=== PATIENT | female | born 1995 | race African-American/Black ===

== ENCOUNTER 2018-01-13 12:54 | Emergency (ER) | payer MEDICAID, MEDICARE ==
[~2018-01-13] VITALS: Ht 162.6 cm; Wt 120.0 kg
[~2018-01-13 12:54] MED LIST: SEROQUEL
[2018-01-13 12:55] VITALS: BP 123/79
== END 2018-01-13 16:10 | disposition left against medical advice (07) ==
LOC: ER 13:15
DX: Z53.21 Procedure and treatment not carried out due to patient leaving prior to being seen by health care provider (principal); Z88.1 Allergy status to other antibiotic agents; Z88.3 Allergy status to other anti-infective agents; Z88.0 Allergy status to penicillin

== ENCOUNTER 2019-02-14 15:16 | Emergency (ER) | payer MEDICARE, MEDICAID ==
[~2019-02-14] VITALS: Ht 165.1 cm; Wt 100.0 kg
[2019-02-14 15:18] VITALS: BP 145/70
== END 2019-02-14 15:47 | disposition left against medical advice (07) ==
LOC: ER 15:19
DX: Z53.21 Procedure and treatment not carried out due to patient leaving prior to being seen by health care provider (principal); F31.9 Bipolar disorder, unspecified; Z88.1 Allergy status to other antibiotic agents; Z88.3 Allergy status to other anti-infective agents; Z88.0 Allergy status to penicillin; Z88.2 Allergy status to sulfonamides; Z88.8 Allergy status to other drugs, medicaments and biological substances; Z91.018 Allergy to other foods
CPT/HCPCS: 93005

== ENCOUNTER 2019-03-23 10:28 | Emergency (ER) | payer MEDICARE, MEDICAID ==
[~2019-03-23] VITALS: Ht 165.1 cm; Wt 122.0 kg
[2019-03-23 11:43] LABS: BASOPHILS % 0.3 % (0.0-2.0); EOSINOPHILS % 1.8 % (0.0-5.0); HEMATOCRIT. 38.3 % (36.0-48.0); HEMOGLOBIN. 12.7 g/dL (12.0-16.0); LYMPHOCYTES % 22.3 % (20.0-50.0); MEAN CORPUSCULAR HEMOGLOBIN 28.4 pg (28.0-32.0); MEAN PLATELET VOLUME 8.7 fl (7.4-10.4); MONOCYTES % 6.1 % (2.0-8.0); NEUTROPHILS % 69.5 % (40.0-76.0); PLATELET 225 x1000/uL (130-400); RED BLOOD CELL COUNT 4.45 mill/uL (4.2-5.4)
[2019-03-23 11:47] LABS: INR 1.2
[2019-03-23 11:48] LABS: CHLORIDE 107 mEq/L (98-107)
[2019-03-23] MEDS ORDERED: SODIUM CHLORIDE 0.9% 1,000 ML IV ONE (12:00)
[2019-03-23] MEDS ORDERED: KETOROLAC 15MG/ML VIAL IV ONE (12:00)
[2019-03-23] MEDS ORDERED: ACETAMINOPHEN 325MG TABLET PO ONE (12:45)
[2019-03-23 13:41] LABS: CLARITY URINE CLEAR (CLEAR); COLOR URINE YELLOW (YELLOW); KETONES URINE 1+ (NEGATIVE); LEUKOCYTE ESTERASE URINE NEGATIVE (NEGATIVE); NITRITE URINE NEGATIVE (NEGATIVE); OCCULT BLOOD URINE NEGATIVE (NEGATIVE); PROTEIN URINE NEGATIVE (NEGATIVE); SPECIFIC GRAVITY URINE 1.021 (1.005-1.030)
[2019-03-23] MEDS ORDERED: BACITRACIN ZINC OINT UDPKT TOP NR ×2 (14:00)
[2019-03-23] MEDS ORDERED: IBUPROFEN 600MG TABLET PO NR (14:00)
[2019-03-23 14:55] VITALS: BP 142/75
== END 2019-03-23 15:10 | disposition home or self-care (01) ==
LOC: ER 10:28
DX: L03.90 Cellulitis, unspecified (principal); K59.00 Constipation, unspecified; T14.8XXA Other injury of unspecified body region, initial encounter; X58.XXXA Exposure to other specified factors, initial encounter; Y92.9 Unspecified place or not applicable; Y93.9 Activity, unspecified; R03.0 Elevated blood-pressure reading, without diagnosis of hypertension; Z88.0 Allergy status to penicillin; Z88.2 Allergy status to sulfonamides; Z88.8 Allergy status to other drugs, medicaments and biological substances; Z88.3 Allergy status to other anti-infective agents
CPT/HCPCS: 36415; 80053; 81003; 83690; 85025; 85610; 99284; J1885

== ENCOUNTER 2019-03-29 17:57 | Emergency (ER) | payer MEDICARE, MEDICAID ==
[~2019-03-29] VITALS: Ht 165.1 cm; Wt 126.0 kg
[2019-03-29 18:00] VITALS: BP 139/58
== END 2019-03-29 19:12 | disposition left against medical advice (07) ==
LOC: ER 17:57
DX: R53.1 Weakness (principal); Z53.21 Procedure and treatment not carried out due to patient leaving prior to being seen by health care provider

== ENCOUNTER 2019-04-05 15:07 | Emergency (ER) | payer MEDICARE, MEDICAID ==
[~2019-04-05] VITALS: Ht 170.2 cm; Wt 116.0 kg
[2019-04-05] MEDS ORDERED: KETOROLAC 60MG/2ML VIAL IM ONE (17:30)
[2019-04-05 17:58] LABS: CLARITY URINE CLEAR (CLEAR); COLOR URINE YELLOW (YELLOW); KETONES URINE NEGATIVE (NEGATIVE); LEUKOCYTE ESTERASE URINE NEGATIVE (NEGATIVE); NITRITE URINE NEGATIVE (NEGATIVE); OCCULT BLOOD URINE NEGATIVE (NEGATIVE); PH URINE 5.5 (4.5-8.0); PROTEIN URINE NEGATIVE (NEGATIVE); SPECIFIC GRAVITY URINE 1.022 (1.005-1.030)
[2019-04-05 19:16] VITALS: BP 139/84
== END 2019-04-05 19:29 | disposition home or self-care (01) ==
LOC: ER 15:51
DX: M79.18 Myalgia, other site (principal); N94.10 Unspecified dyspareunia; F41.9 Anxiety disorder, unspecified; J45.909 Unspecified asthma, uncomplicated; Z91.018 Allergy to other foods; Z88.1 Allergy status to other antibiotic agents
CPT/HCPCS: 81003; 81025; 96372; 99283; J1885

== ENCOUNTER 2019-04-18 16:26 | Emergency (ER) | payer MEDICARE, MEDICAID ==
[~2019-04-18] VITALS: Ht 170.2 cm; Wt 109.0 kg
[2019-04-18] MEDS ORDERED: SODIUM CHLORIDE 0.9% 1,000 ML IV ONE (18:00)
[2019-04-18 18:33] LABS: BASOPHILS % 0.5 % (0.0-2.0); EOSINOPHILS % 2.5 % (0.0-5.0); HEMATOCRIT. 35.8 % (36.0-48.0); HEMOGLOBIN. 11.9 g/dL (12.0-16.0); LYMPHOCYTES % 35.8 % (20.0-50.0); MEAN CORPUSCULAR HEMOGLOBIN 28.8 pg (28.0-32.0); MEAN CORPUSCULAR VOLUME 86.5 fL (81.0-99.0); MEAN PLATELET VOLUME 8.6 fl (7.4-10.4); MONOCYTES % 6.4 % (2.0-8.0); NEUTROPHILS % 54.8 % (40.0-76.0); PLATELET 268 x1000/uL (130-400); RED BLOOD CELL COUNT 4.14 mill/uL (4.2-5.4); RED CELL DISTRIBUTION WIDTH 13.6 % (11.6-14.6)
[2019-04-18 18:38] LABS: CHLORIDE 105 mEq/L (98-107)
[2019-04-18] MEDS ORDERED: ACETAMINOPHEN 325MG TABLET PO ONE (19:45)
[2019-04-18 20:13] LABS: CREATINE KINASE 69 IU/L (26-192)
[2019-04-18 22:28] VITALS: BP 125/65
== END 2019-04-18 22:29 | disposition home or self-care (01) ==
LOC: ER 16:26
DX: O26.891 Other specified pregnancy related conditions, first trimester (principal); M79.10 Myalgia, unspecified site; Z3A.00 Weeks of gestation of pregnancy not specified; Z88.6 Allergy status to analgesic agent; Z88.3 Allergy status to other anti-infective agents; Z88.0 Allergy status to penicillin; Z88.2 Allergy status to sulfonamides; Z91.018 Allergy to other foods
CPT/HCPCS: 36415; 76801; 76817; 80048; 81025; 82550; 84702; 85025; 99284; J7030

== ENCOUNTER 2019-04-19 16:43 | Emergency (ER) | payer MEDICARE, MEDICAID ==
[~2019-04-19] VITALS: Ht 172.7 cm; Wt 130.0 kg
[2019-04-19 16:44] VITALS: BP 134/64
== END 2019-04-19 19:17 | disposition left against medical advice (07) ==
LOC: ER 16:43
DX: Z53.21 Procedure and treatment not carried out due to patient leaving prior to being seen by health care provider (principal)

== ENCOUNTER 2019-04-30 13:45 | Emergency (ER) | payer MEDICARE, MEDICAID ==
[~2019-04-30] VITALS: Ht 170.2 cm; Wt 75.0 kg
[2019-04-30 14:50] LABS: BASOPHILS % 0.4 % (0.0-2.0); EOSINOPHILS % 2.4 % (0.0-5.0); HEMATOCRIT. 35.3 % (36.0-48.0); HEMOGLOBIN. 11.9 g/dL (12.0-16.0); LYMPHOCYTES % 19.4 % (20.0-50.0); MEAN CORPUSCULAR HEMOGLOBIN 29.1 pg (28.0-32.0); MEAN CORPUSCULAR VOLUME 86.3 fL (81.0-99.0); MEAN PLATELET VOLUME 8.3 fl (7.4-10.4); MONOCYTES % 5.4 % (2.0-8.0); NEUTROPHILS % 72.4 % (40.0-76.0); PLATELET 236 x1000/uL (130-400); RED BLOOD CELL COUNT 4.08 mill/uL (4.2-5.4); RED CELL DISTRIBUTION WIDTH 14.4 % (11.6-14.6)
[2019-04-30 14:57] LABS: CHLORIDE 107 mEq/L (98-107)
[2019-04-30 15:21] LABS: B-HCG QUANTITATIVE 50217 mIU/mL (<3)
[2019-04-30] MEDS ORDERED: ACETAMINOPHEN 325MG TABLET PO NR (16:41)
[2019-04-30 17:06] LABS: CLARITY URINE CLEAR (CLEAR); COLOR URINE YELLOW (YELLOW); KETONES URINE NEGATIVE (NEGATIVE); LEUKOCYTE ESTERASE URINE NEGATIVE (NEGATIVE); NITRITE URINE NEGATIVE (NEGATIVE); OCCULT BLOOD URINE NEGATIVE (NEGATIVE); PROTEIN URINE NEGATIVE (NEGATIVE); SPECIFIC GRAVITY URINE 1.025 (1.005-1.030); UROBILINOGEN URINE 0.2 E.U./dL (0.2-1.0)
[2019-04-30 17:30] VITALS: BP 128/79
== END 2019-04-30 17:33 | disposition home or self-care (01) ==
LOC: ER 13:45
DX: O26.891 Other specified pregnancy related conditions, first trimester (principal); Z3A.01 Less than 8 weeks gestation of pregnancy; Z88.0 Allergy status to penicillin; Z88.1 Allergy status to other antibiotic agents; Z88.8 Allergy status to other drugs, medicaments and biological substances; Z91.018 Allergy to other foods
CPT/HCPCS: 36415; 76801; 81025; 84702; 86850; 86900; 99284

== ENCOUNTER 2019-05-04 16:18 | Emergency (ER) | payer MEDICARE, MEDICAID ==
[~2019-05-04] VITALS: Ht 165.1 cm; Wt 100.0 kg
[2019-05-04 16:40] VITALS: BP 156/86
== END 2019-05-04 19:00 | disposition left against medical advice (07) ==
LOC: ER 16:18
DX: Z53.21 Procedure and treatment not carried out due to patient leaving prior to being seen by health care provider (principal)

== ENCOUNTER 2019-05-17 13:53 | Emergency (ER) | payer MEDICARE, MEDICAID ==
[~2019-05-17] VITALS: Ht 165.1 cm; Wt 128.4 kg
[2019-05-17 15:10] LABS: CLARITY URINE CLEAR (CLEAR); COLOR URINE YELLOW (YELLOW); KETONES URINE NEGATIVE (NEGATIVE); LEUKOCYTE ESTERASE URINE NEGATIVE (NEGATIVE); NITRITE URINE NEGATIVE (NEGATIVE); OCCULT BLOOD URINE 2+ (NEGATIVE); PROTEIN URINE NEGATIVE (NEGATIVE); UROBILINOGEN URINE 0.2 E.U./dL (0.2-1.0)
[2019-05-17 16:48] LABS: BASOPHILS % 0.4 % (0.0-2.0); EOSINOPHILS % 1.2 % (0.0-5.0); HEMATOCRIT. 33.6 % (36.0-48.0); HEMOGLOBIN. 11.3 g/dL (12.0-16.0); LYMPHOCYTES % 31.9 % (20.0-50.0); MEAN CORPUSCULAR HEMOGLOBIN 29.2 pg (28.0-32.0); MEAN CORPUSCULAR VOLUME 86.6 fL (81.0-99.0); MEAN PLATELET VOLUME 8.5 fl (7.4-10.4); MONOCYTES % 6.7 % (2.0-8.0); NEUTROPHILS % 59.8 % (40.0-76.0); PLATELET 237 x1000/uL (130-400); RED BLOOD CELL COUNT 3.88 mill/uL (4.2-5.4); RED CELL DISTRIBUTION WIDTH 13.9 % (11.6-14.6)
[2019-05-17 16:50] LABS: CHLORIDE 107 mEq/L (98-107)
[2019-05-17 17:14] LABS: B-HCG QUANTITATIVE 57232 mIU/mL (<3)
[2019-05-17 17:40] VITALS: BP 131/63
== END 2019-05-17 18:10 | disposition home or self-care (01) ==
LOC: ER 13:53
DX: O26.851 Spotting complicating pregnancy, first trimester (principal); O99.321 Drug use complicating pregnancy, first trimester; F12.10 Cannabis abuse, uncomplicated; Z3A.09 9 weeks gestation of pregnancy; Z87.891 Personal history of nicotine dependence; Z91.018 Allergy to other foods; Z88.1 Allergy status to other antibiotic agents; Z88.0 Allergy status to penicillin; Z88.2 Allergy status to sulfonamides
CPT/HCPCS: 36415; 76801; 81025; 84702; 86850; 86900; 99284

== ENCOUNTER 2019-05-25 17:22 | Emergency (ER) | payer MEDICARE, MEDICAID ==
[~2019-05-25] VITALS: Ht 165.1 cm; Wt 137.0 kg
[2019-05-25] MEDS ORDERED: ACETAMINOPHEN 325MG TABLET PO PRN (18:30)
[2019-05-25 18:58] LABS: BASOPHILS % 0.5 % (0.0-2.0); CHLORIDE 105 mEq/L (98-107); EOSINOPHILS % 1.9 % (0.0-5.0); HEMATOCRIT. 33.9 % (36.0-48.0); HEMOGLOBIN. 11.2 g/dL (12.0-16.0); LYMPHOCYTES % 27.6 % (20.0-50.0); MEAN CORPUSCULAR VOLUME 87.5 fL (81.0-99.0); MEAN PLATELET VOLUME 8.4 fl (7.4-10.4); MONOCYTES % 7.8 % (2.0-8.0); NEUTROPHILS % 62.2 % (40.0-76.0); PLATELET 224 x1000/uL (130-400); RED BLOOD CELL COUNT 3.87 mill/uL (4.2-5.4); RED CELL DISTRIBUTION WIDTH 13.8 % (11.6-14.6)
[2019-05-25 19:17] LABS: CLARITY URINE CLOUDY (CLEAR); COLOR URINE YELLOW (YELLOW); KETONES URINE NEGATIVE (NEGATIVE); LEUKOCYTE ESTERASE URINE 2+ (NEGATIVE); NITRITE URINE NEGATIVE (NEGATIVE); OCCULT BLOOD URINE NEGATIVE (NEGATIVE); PH URINE 5.5 (4.5-8.0); PROTEIN URINE NEGATIVE (NEGATIVE); SPECIFIC GRAVITY URINE 1.021 (1.005-1.030); UROBILINOGEN URINE 0.2 E.U./dL (0.2-1.0)
[2019-05-25 19:23] LABS: B-HCG QUANTITATIVE 32459 mIU/mL (<3)
[2019-05-25 21:10] VITALS: BP 135/65
== END 2019-05-25 21:14 | disposition home or self-care (01) ==
LOC: ER 17:22
DX: O26.891 Other specified pregnancy related conditions, first trimester (principal); R10.2 Pelvic and perineal pain; Z3A.11 11 weeks gestation of pregnancy; Z88.3 Allergy status to other anti-infective agents; Z88.0 Allergy status to penicillin; Z88.2 Allergy status to sulfonamides
CPT/HCPCS: 36415; 76801; 81025; 84702; 99284

== ENCOUNTER 2019-12-16 13:45 | Emergency (ER) | payer MEDICARE, MEDICAID ==
[~2019-12-16] VITALS: Ht 167.6 cm; Wt 127.0 kg
[2019-12-16] MEDS ORDERED: LIDOCAINE HCL 1% 20ML VIAL (Pyxis) INJ INFIL ONE (22:15)
[2019-12-16 23:19] VITALS: BP 150/80
== END 2019-12-16 23:17 | disposition home or self-care (01) ==
LOC: ER 14:04
DX: T81.31XA Disruption of external operation (surgical) wound, not elsewhere classified, initial encounter (principal); I10 Essential (primary) hypertension; F12.10 Cannabis abuse, uncomplicated; Z88.3 Allergy status to other anti-infective agents; Z88.0 Allergy status to penicillin; Z88.2 Allergy status to sulfonamides; Z91.018 Allergy to other foods; Y83.8 Other surgical procedures as the cause of abnormal reaction of the patient, or of later complication, without mention of misadventure at the time of the procedure; Y92.018 Other place in single-family (private) house as the place of occurrence of the external cause
CPT/HCPCS: 12001; 99283; J3490

== ENCOUNTER 2020-09-06 19:24 | Emergency (ER) | payer MEDICAID, MEDICARE ==
[~2020-09-06] VITALS: Ht 162.6 cm; Wt 118.0 kg
[2020-09-06] MEDS ORDERED: TETRACAINE 0.5% OPHTH DROPS 4ML BOTHEYE ONE (20:00)
[2020-09-06] MEDS ORDERED: BALANCED SALT IRRIG SOLN 15ML IR ONE (20:00)
[2020-09-06 20:57] VITALS: BP 128/79
== END 2020-09-06 21:08 | disposition home or self-care (01) ==
LOC: ER 19:24
DX: H57.9 Unspecified disorder of eye and adnexa (principal); F12.10 Cannabis abuse, uncomplicated; I10 Essential (primary) hypertension; Z98.890 Other specified postprocedural states; Z91.018 Allergy to other foods; Z88.1 Allergy status to other antibiotic agents; Z88.2 Allergy status to sulfonamides; Z79.899 Other long term (current) drug therapy
CPT/HCPCS: 99283

== ENCOUNTER 2024-08-23 13:41 | Emergency (ER) | payer OTHER ==
[~2024-08-23] VITALS: Ht 162.6 cm; Wt 180.0 kg
[2024-08-23 13:45] VITALS: TEMP 98.1; O2SAT 98
[2024-08-23] MEDS: KETOROLAC 30MG/ML VIAL IV STA (14:10)
[2024-08-23] MEDS: ONDANSETRON HCL 4MG/2ML INJ IV STA (15:05)
[2024-08-23] MEDS: SODIUM CHLORIDE 0.9% 1,000 ML IV ONE (15:05)
[2024-08-23] MEDS: ACETAMINOPHEN 1000MG/100ML 100 ML IV ONE (15:05)
[2024-08-23] MEDS: DIPHENHYDRAMINE 25MG CAPSULE PO ONE (15:15)
[2024-08-23 15:24] LABS: BASOPHILS % 0.5 % (0.0-2.0); DIFFERENTIAL COMMENT 0; EOSINOPHILS % 3.5 % (0.0-5.0); HEMATOCRIT. 31.3 % (36.0-48.0); HEMOGLOBIN. 9.6 g/dL (12.0-16.0); LYMPHOCYTES % 33.1 % (20.0-50.0); MEAN CORPUSCULAR HEMOGLOBIN 23.9 pg (28.0-32.0); MEAN CORPUSCULAR HGB CONC 30.8 g/dL (31.0-37.0); MEAN CORPUSCULAR VOLUME 77.7 fL (81.0-99.0); MEAN PLATELET VOLUME 8.4 fl (7.4-10.4); MONOCYTES % 6.1 % (2.0-8.0); NEUTROPHILS % 56.8 % (40.0-76.0); PLATELET 277 x1000/uL (130-400); RED BLOOD CELL COUNT 4.03 mill/uL (4.2-5.4); RED CELL DISTRIBUTION WIDTH 18.3 % (11.6-14.6); WHITE BLOOD COUNT 8.3 x1000/uL (4.5-11.0)
[2024-08-23 15:29] LABS: CHLORIDE 110 mEq/L (98-107); SODIUM 140 mEq/L (136-145)
[2024-08-23 15:31] LABS: CALCIUM 8.7 mg/dL (8.7-10.4); CARBON DIOXIDE 23 mEq/L (21-32)
[2024-08-23 15:35] LABS: HCG SCREEN NEGATIVE
[2024-08-23 15:36] LABS: CREATININE 0.8 mg/dL (0.6-1.0); GLUCOSE 104 mg/dL (70-105); UREA NITROGEN BLOOD 8 mg/dL (9-23)
[2024-08-23 15:37] LABS: ALANINE AMINOTRANSFERASE 9 IU/L (10-49); ASPARTATE AMINOTRANSFERASE 32 IU/L (<34)
[2024-08-23 15:38] LABS: ALBUMIN 4.2 g/dL (3.2-4.8); BILIRUBIN DIRECT 0.2 mg/dL (<=3.0); BILIRUBIN TOTAL 0.6 mg/dL (0.1-1.0); ETHANOL BLOOD < 10 mg/dL (<10); PROTEIN TOTAL 6.7 g/dL (6.0-8.3)
[2024-08-23 17:45] VITALS: BP 122/89; PULSE 97; RESP 14; O2SAT 99
== END 2024-08-23 17:59 | disposition home or self-care (01) ==
LOC: ER 13:44
DX: R19.7 Diarrhea, unspecified (principal); R10.84 Generalized abdominal pain; D64.9 Anemia, unspecified; I10 Essential (primary) hypertension; Z88.0 Allergy status to penicillin; Z88.1 Allergy status to other antibiotic agents; Z88.2 Allergy status to sulfonamides; Z91.018 Allergy to other foods; Z98.890 Other specified postprocedural states
CPT/HCPCS: 80076; 80048; 80320; 84703; 83690; 85025; 36415; 74176; 96361; 96374; 96375; 99285; Q0163; J1885; J2405; J7030; Z7610 ×3; G0480; J0131

== ENCOUNTER 2025-01-29 13:06 | Emergency (ER) | payer OTHER ==
[~2025-01-29] VITALS: Ht 167.6 cm; Wt 159.0 kg
[2025-01-29 13:08] VITALS: BP 159/81; PULSE 93; RESP 18; TEMP 36.8; O2SAT 99
[2025-01-29] MEDS: FAMOTIDINE 20MG/2ML VIAL IV ONE (14:43)
[2025-01-29] MEDS: METHYLPREDNISOLONE SOD SUCC 125MG/2ML (ACT-O-VIAL) IV ONE (14:43)
[2025-01-29] MEDS: ONDANSETRON HCL 4MG/2ML INJ IV ONE (14:43)
[2025-01-29] MEDS: DIPHENHYDRAMINE 50MG/ML VIAL IV ONE (14:43)
[2025-01-29 14:49] VITALS: TEMP 98.7
[2025-01-29] MEDS: ACETAMINOPHEN 325MG TABLET PO ONE (14:49)
[2025-01-29] MEDS: HYDROCODONE/ACETAMINOPHEN 7.5/325MG TABLET PO ONE (15:24)
[2025-01-29] MEDS: KETOROLAC 15MG/ML VIAL IV ONE (15:26)
== END 2025-01-29 15:28 | disposition home or self-care (01) ==
LOC: ER 13:06
DX: T78.40XA Allergy, unspecified, initial encounter (principal); I10 Essential (primary) hypertension; Z88.0 Allergy status to penicillin; Z88.1 Allergy status to other antibiotic agents; Z88.2 Allergy status to sulfonamides; Z98.890 Other specified postprocedural states; X58.XXXA Exposure to other specified factors, initial encounter; Y93.89 Activity, other specified; Y92.89 Other specified places as the place of occurrence of the external cause; Y99.8 Other external cause status
CPT/HCPCS: 96374; 96375; 99284; J1200; J3490; J2919; J2405; Z7610 ×4; J1885

== ENCOUNTER 2025-01-30 22:38 | Emergency (ER) | payer OTHER ==
[~2025-01-30] VITALS: Ht 167.6 cm; Wt 158.8 kg
[2025-01-30 22:42] VITALS: BP 148/73; PULSE 72; RESP 14; TEMP 37; O2SAT 100
[2025-01-30] MEDS: ACETAMINOPHEN 1000MG/100ML 100 ML IV ONE (23:09)
[2025-01-31] MEDS ORDERED: SODIUM CHLORIDE 0.9% 500 ML IV ONE
[2025-01-31] MEDS ORDERED: DIPHENHYDRAMINE 25MG CAPSULE PO ONE
[2025-01-31] MEDS ORDERED: ONDANSETRON HCL 4MG/2ML INJ IV ONE
[2025-01-31] MEDS ORDERED: ACETAMINOPHEN 325MG TABLET PO ONE (00:30)
== END 2025-01-31 00:35 | disposition left against medical advice (07) ==
LOC: ER 22:38
DX: G89.29 Other chronic pain (principal); R10.33 Periumbilical pain; I10 Essential (primary) hypertension; Z88.0 Allergy status to penicillin; Z88.1 Allergy status to other antibiotic agents; Z88.2 Allergy status to sulfonamides; Z98.890 Other specified postprocedural states
CPT/HCPCS: 99283; J7040; J0131

== ENCOUNTER 2025-02-20 14:04 | Emergency (ER) | payer MEDICAID, OTHER ==
[~2025-02-20] VITALS: Ht 167.6 cm; Wt 120.0 kg
[2025-02-20 14:11] VITALS: O2SAT 99
[2025-02-20] MEDS ORDERED: DIPHENHYDRAMINE 50MG CAPSULE PO ONE (14:30)
[2025-02-20] MEDS: ACETAMINOPHEN 325MG TABLET PO ONE (14:30)
[2025-02-20] MEDS: MAGNESIUM/ALUMINUM HYDROXIDE/SIMETHICONE 30ML UDC PO ONE (14:30)
[2025-02-20] MEDS: PREDNISONE 20MG TABLET PO ONE (14:30)
[2025-02-20] MEDS: FAMOTIDINE 20MG TABLET PO SCH (14:30)
[2025-02-20 14:46] LABS: CHLORIDE 105 mEq/L (98-107); POTASSIUM 4.1 mEq/L (3.5-5.1); SODIUM 139 mEq/L (136-145)
[2025-02-20 14:47] LABS: CARBON DIOXIDE 22 mEq/L (21-32)
[2025-02-20 14:48] LABS: CALCIUM 9.2 mg/dL (8.7-10.4)
[2025-02-20 14:49] LABS: INR 1.1; PROTHROMBIN TIME 11.6 sec (9.6-11.0)
[2025-02-20 14:50] LABS: BASOPHILS % 0.3 % (0.0-2.0); DIFFERENTIAL COMMENT 0; EOSINOPHILS % 3.1 % (0.0-5.0); HEMATOCRIT. 32.7 % (36.0-48.0); HEMOGLOBIN. 9.8 g/dL (12.0-16.0); LYMPHOCYTES % 24.5 % (20.0-50.0); MEAN CORPUSCULAR HEMOGLOBIN 22.3 pg (28.0-32.0); MEAN CORPUSCULAR VOLUME 74.3 fL (81.0-99.0); MEAN PLATELET VOLUME 8.5 fl (7.4-10.4); MONOCYTES % 4.6 % (2.0-8.0); NEUTROPHILS % 67.5 % (40.0-76.0); PLATELET 333 x1000/uL (130-400); RED BLOOD CELL COUNT 4.41 mill/uL (4.2-5.4); RED CELL DISTRIBUTION WIDTH 18.5 % (11.6-14.6); WHITE BLOOD COUNT 13.9 x1000/uL (4.5-11.0)
[2025-02-20 14:53] LABS: GLUCOSE 169 mg/dL (70-105); UREA NITROGEN BLOOD 10 mg/dL (9-23)
[2025-02-20 14:54] LABS: ALANINE AMINOTRANSFERASE < 7 IU/L (10-49); ALBUMIN 4.1 g/dL (3.2-4.8)
[2025-02-20 14:55] LABS: BILIRUBIN DIRECT 0.2 mg/dL (<=3.0); BILIRUBIN TOTAL 0.5 mg/dL (0.1-1.0); PROTEIN TOTAL 6.8 g/dL (6.0-8.3)
[2025-02-20 14:58] LABS: HCG SCREEN NEGATIVE
[2025-02-20 15:01] LABS: ASPARTATE AMINOTRANSFERASE < 8 IU/L (<34)
[2025-02-20] MEDS: DIPHENHYDRAMINE 25MG CAPSULE PO NR (15:49)
[2025-02-20 16:50] VITALS: BP 138/82; PULSE 81; RESP 18; TEMP 37; O2SAT 99
== END 2025-02-20 17:48 | disposition home or self-care (01) ==
LOC: ER 14:11
DX: R10.9 Unspecified abdominal pain (principal); I10 Essential (primary) hypertension; K80.20 Calculus of gallbladder without cholecystitis without obstruction; Z79.52 Long term (current) use of systemic steroids; Z88.0 Allergy status to penicillin; Z88.1 Allergy status to other antibiotic agents; Z88.2 Allergy status to sulfonamides; Z98.890 Other specified postprocedural states
CPT/HCPCS: 99285; 74176; 76705; 80076; 80048; 84703; 83690; 85025; 85610; 36415; 73560; Q0163; J7512

== ENCOUNTER 2025-03-27 13:45 | Emergency (ER) | payer MEDICAID, OTHER ==
[~2025-03-27] VITALS: Ht 162.6 cm; Wt 160.0 kg
[2025-03-27 13:47] VITALS: O2SAT 100
[2025-03-27] MEDS ORDERED: DICYCLOMINE 10 MG/5 ML ORAL SYR PO STA (13:57)
[2025-03-27] MEDS: MAGNESIUM/ALUMINUM HYDROXIDE/SIMETHICONE 30ML UDC PO STA ×2 (13:57→14:59)
[2025-03-27] MEDS: KETOROLAC 30MG/ML VIAL IV STA (14:58)
[2025-03-27] MEDS: SODIUM CHLORIDE 0.9% 1,000 ML IV ONE (14:59)
[2025-03-27] MEDS: MORPHINE SULFATE 4 MG/ML INJ (FOR IV/IM USE) IV STA (14:59)
[2025-03-27] MEDS: ONDANSETRON HCL 4MG/2ML INJ IV STA (14:59)
[2025-03-27 15:01] LABS: BASOPHILS % 0.6 % (0.0-2.0); DIFFERENTIAL COMMENT 0; EOSINOPHILS % 2.9 % (0.0-5.0); HEMATOCRIT. 33.5 % (36.0-48.0); HEMOGLOBIN. 10.8 g/dL (12.0-16.0); LYMPHOCYTES % 21.2 % (20.0-50.0); MEAN CORPUSCULAR HEMOGLOBIN 23.9 pg (28.0-32.0); MEAN CORPUSCULAR HGB CONC 32.2 g/dL (31.0-37.0); MEAN CORPUSCULAR VOLUME 74.1 fL (81.0-99.0); MEAN PLATELET VOLUME 8.4 fl (7.4-10.4); MONOCYTES % 5.1 % (2.0-8.0); NEUTROPHILS % 70.2 % (40.0-76.0); PLATELET 329 x1000/uL (130-400); RED BLOOD CELL COUNT 4.52 mill/uL (4.2-5.4); RED CELL DISTRIBUTION WIDTH 19.5 % (11.6-14.6); WHITE BLOOD COUNT 10.6 x1000/uL (4.5-11.0)
[2025-03-27 15:09] LABS: CHLORIDE 107 mEq/L (98-107); POTASSIUM 4.1 mEq/L (3.5-5.1); SODIUM 137 mEq/L (136-145)
[2025-03-27 15:10] LABS: CALCIUM 8.7 mg/dL (8.7-10.4); CARBON DIOXIDE 23 mEq/L (21-32)
[2025-03-27 15:13] LABS: HCG SCREEN NEGATIVE
[2025-03-27 15:15] LABS: GLUCOSE 289 mg/dL (70-105); UREA NITROGEN BLOOD 9 mg/dL (9-23)
[2025-03-27 15:17] LABS: ALANINE AMINOTRANSFERASE 8 IU/L (10-49); ALBUMIN 4.2 g/dL (3.2-4.8); ASPARTATE AMINOTRANSFERASE 13 IU/L (<34); BILIRUBIN DIRECT 0.2 mg/dL (<=3.0); BILIRUBIN TOTAL 0.6 mg/dL (0.1-1.0); PROTEIN TOTAL 6.5 g/dL (6.0-8.3)
[2025-03-27] MEDS: DICYCLOMINE HCL 10MG CAPSULE PO NR (15:38)
[2025-03-27] MEDS ORDERED: BISM262T15 MT (16:09)
[2025-03-27 16:16] VITALS: BP 139/69; PULSE 73; RESP 16; TEMP 36.8; O2SAT 100
== END 2025-03-27 16:19 | disposition home or self-care (01) ==
LOC: ER 14:02
DX: R10.33 Periumbilical pain (principal); E11.9 Type 2 diabetes mellitus without complications; I10 Essential (primary) hypertension; Z88.0 Allergy status to penicillin; Z88.1 Allergy status to other antibiotic agents; Z88.2 Allergy status to sulfonamides
CPT/HCPCS: 80076; 80048; 84703; 83690; 85025; 36415; 96361; 96374; 96375; 99285; J1885; J2405; J2270; J7030; Z7610 ×2; A4606

== ENCOUNTER 2025-06-06 07:11 | Emergency (ER) | payer MEDICAID ==
[~2025-06-06] VITALS: Ht 165.1 cm; Wt 109.0 kg
[~2025-06-06 07:11] MED LIST changes: +BISM262T15 MT
[2025-06-06 07:13] VITALS: O2SAT 99
[2025-06-06 09:23] LABS: BASOPHILS % 0.5 % (0.0-2.0); EOSINOPHILS % 3.7 % (0.0-5.0); HEMATOCRIT. 31.9 % (36.0-48.0); HEMOGLOBIN. 10.1 g/dL (12.0-16.0); LYMPHOCYTES % 21.6 % (20.0-50.0); MEAN PLATELET VOLUME 8.8 fl (7.4-10.4); MONOCYTES % 4.4 % (2.0-8.0); NEUTROPHILS % 69.8 % (40.0-76.0); PLATELET 344 x1000/uL (130-400); RED BLOOD CELL COUNT 4.21 mill/uL (4.2-5.4); RED CELL DISTRIBUTION WIDTH 16.2 % (11.6-14.6)
[2025-06-06 09:41] LABS: CREATININE 1.0 mg/dL (0.6-1.0); UREA NITROGEN BLOOD 9 mg/dL (9-23)
[2025-06-06 09:42] LABS: ETHANOL BLOOD < 10 mg/dL (<10)
[2025-06-06 09:43] LABS: ASPARTATE AMINOTRANSFERASE 9 IU/L (<34); BILIRUBIN DIRECT 0.1 mg/dL (<=3.0); BILIRUBIN TOTAL 0.4 mg/dL (0.1-1.0); PROTEIN TOTAL 6.4 g/dL (6.0-8.3)
[2025-06-06 09:50] LABS: HCG SCREEN NEGATIVE
[2025-06-06] MEDS: DIPHENHYDRAMINE 50MG/ML VIAL IV ONE ×2 (09:55→12:00)
[2025-06-06] MEDS: MORPHINE SULFATE 4 MG/ML INJ (FOR IV/IM USE) IV ONE (09:55)
[2025-06-06] MEDS: PANTOPRAZOLE SODIUM 40 MG/VIAL IV ONE ×2 (09:56→10:00)
[2025-06-06] MEDS: ONDANSETRON HCL 4MG/2ML INJ IV ONE (09:56)
[2025-06-06] MEDS: SODIUM CHLORIDE 0.9% 1,000 ML IV ONE (09:56)
[2025-06-06] MEDS: MORPHINE SULFATE 2 MG/ML INJ (NOT FOR IM USE) IV ONE ×2 (12:00→13:31)
[2025-06-06 12:37] LABS: CLARITY URINE CLEAR (CLEAR); COLOR URINE YELLOW (YELLOW); GLUCOSE URINE 1+ (NEGATIVE); KETONES URINE NEGATIVE (NEGATIVE); LEUKOCYTE ESTERASE URINE NEGATIVE (NEGATIVE); NITRITE URINE NEGATIVE (NEGATIVE); OCCULT BLOOD URINE NEGATIVE (NEGATIVE); PH URINE 6.5 (4.5-8.0); PROTEIN URINE NEGATIVE (NEGATIVE); SPECIFIC GRAVITY URINE 1.019 (1.005-1.030); UROBILINOGEN URINE 1.0 E.U./dL (0.2-1.0)
[2025-06-06] MEDS ORDERED: FAMO-135 MT (12:51)
[2025-06-06] MEDS ORDERED: FERR1TAB91 MT (12:51)
[2025-06-06 13:07] LABS: SQUAMOUS EPITHELIAL CELL URINE 1+ /lpf (RARE/1+)
[2025-06-06 13:08] LABS: MUCUS URINE TRACE /lpf (< = 2+); RBC URINE 0-2 /hpf (0-2); WBC URINE 0-2 /hpf (0-2)
[2025-06-06 13:10] LABS: BACTERIA URINE TRACE
[2025-06-06 13:30] VITALS: TEMP 36.8; O2SAT 100
[2025-06-06 13:31] VITALS: BP 155/80; PULSE 98; RESP 16
[2025-06-06 13:34] LABS: *AMPHETAMINES SCREEN URINE NEGATIVE (NEGATIVE); *BENZODIAZEPINES SCREEN URINE NEGATIVE (NEGATIVE)
[2025-06-06 13:35] LABS: *BARBITURATES SCREEN URINE NEGATIVE (NEGATIVE); *COCAINE SCREEN URINE NEGATIVE (NEGATIVE); CANNABINOID URINE SCREEN NEGATIVE (NEGATIVE); ECSTASY MDMA SCREEN URINE NEGATIVE (NEGATIVE); METHADONE URINE SCREEN NEGATIVE (NEGATIVE); OPIATES URINE SCREEN PRESUMPTIVE POSITIVE (NEGATIVE); PHENCYCLIDINE URINE SCREEN NEGATIVE (NEGATIVE)
== END 2025-06-06 13:41 | disposition home or self-care (01) ==
LOC: ER 07:21
DX: K80.70 Calculus of gallbladder and bile duct without cholecystitis without obstruction (principal); D64.9 Anemia, unspecified; E11.65 Type 2 diabetes mellitus with hyperglycemia; I10 Essential (primary) hypertension; Z79.4 Long term (current) use of insulin; Z88.1 Allergy status to other antibiotic agents; Z88.2 Allergy status to sulfonamides; Z88.5 Allergy status to narcotic agent; Z79.899 Other long term (current) drug therapy
CPT/HCPCS: 80076; 80305; 80048; 81003; 81025; 80320; 84703; 83690; 85025; 36415; 73562; 74176; 76705; 96361; 96374; 96375; 96376; 99285; J1200; J2405; J2470; J2270 ×2; J7030; Z7610 ×3; G0480

== ENCOUNTER 2025-06-10 14:13 | Emergency (ER) | payer MEDICAID ==
[~2025-06-10] VITALS: Ht 162.6 cm; Wt 160.0 kg
[~2025-06-10 14:13] MED LIST changes: +FAMO-135 MT; +FERR1TAB91 MT
[2025-06-10 14:17] VITALS: BP 191/98; PULSE 104; RESP 16; TEMP 37.3; O2SAT 98
[2025-06-10] MEDS ORDERED: ACETAMINOPHEN 160MG/5ML UDC PO ONE (14:45)
[2025-06-10] MEDS ORDERED: DIPHENHYDRAMINE 12.5MG/5ML UDC PO ONE (14:45)
[2025-06-10] MEDS: DIPHENHYDRAMINE 12.5MG/5ML UDC PO ONE (15:22)
== END 2025-06-10 15:45 | disposition home or self-care (01) ==
LOC: ER 14:13
DX: T78.40XA Allergy, unspecified, initial encounter (principal); R10.9 Unspecified abdominal pain; I10 Essential (primary) hypertension; E11.9 Type 2 diabetes mellitus without complications; Z88.5 Allergy status to narcotic agent; Z88.2 Allergy status to sulfonamides; Z88.1 Allergy status to other antibiotic agents; Z88.0 Allergy status to penicillin; Z79.899 Other long term (current) drug therapy; Z98.890 Other specified postprocedural states; X58.XXXA Exposure to other specified factors, initial encounter
CPT/HCPCS: 99283; Q0163

== ENCOUNTER 2025-06-11 03:53 | Emergency (ER) | payer MEDICAID ==
[~2025-06-11] VITALS: Ht 162.6 cm; Wt 147.0 kg
[2025-06-11 04:01] VITALS: BP 140/75; PULSE 83; RESP 16; TEMP 36.8; O2SAT 98
[2025-06-11 04:49] LABS: BASOPHILS % 0.5 % (0.0-2.0); EOSINOPHILS % 3.8 % (0.0-5.0); HEMATOCRIT. 32.0 % (36.0-48.0); HEMOGLOBIN. 10.0 g/dL (12.0-16.0); LYMPHOCYTES % 23.3 % (20.0-50.0); MEAN PLATELET VOLUME 8.5 fl (7.4-10.4); MONOCYTES % 4.8 % (2.0-8.0); NEUTROPHILS % 67.6 % (40.0-76.0); PLATELET 357 x1000/uL (130-400); RED BLOOD CELL COUNT 4.27 mill/uL (4.2-5.4); RED CELL DISTRIBUTION WIDTH 16.5 % (11.6-14.6)
[2025-06-11 05:00] LABS: HCG SCREEN NEGATIVE
[2025-06-11 05:05] LABS: CREATININE 0.9 mg/dL (0.6-1.0)
[2025-06-11 05:06] LABS: UREA NITROGEN BLOOD 10 mg/dL (9-23)
[2025-06-11 05:08] LABS: BILIRUBIN DIRECT 0.2 mg/dL (<=3.0); BILIRUBIN TOTAL 0.7 mg/dL (0.1-1.0); PROTEIN TOTAL 6.6 g/dL (6.0-8.3)
[2025-06-11 05:20] LABS: ASPARTATE AMINOTRANSFERASE < 8 IU/L (<34)
[2025-06-11] MEDS ORDERED: ONDANSETRON 4MG ODT PO ONE (07:00)
== END 2025-06-11 07:50 | disposition home or self-care (01) ==
LOC: ER 03:53
DX: R10.84 Generalized abdominal pain (principal); E11.9 Type 2 diabetes mellitus without complications; I10 Essential (primary) hypertension; Z88.0 Allergy status to penicillin; Z88.1 Allergy status to other antibiotic agents; Z88.2 Allergy status to sulfonamides; Z88.5 Allergy status to narcotic agent; Z79.899 Other long term (current) drug therapy; Z98.890 Other specified postprocedural states
CPT/HCPCS: 36415; 74176; 80048; 80076; 84703; 85025; 99284

== ENCOUNTER 2025-07-08 19:58 | Emergency (ER) | payer MEDICAID ==
[2025-07-08 20:15] VITALS: PULSE 99; RESP 20; O2SAT 100
[2025-07-10] MEDS ORDERED: INSU100I28 SQ (17:47)
== END 2025-07-08 21:15 | disposition left against medical advice (07) ==
LOC: ER 20:00
DX: R10.13 Epigastric pain (principal); Z53.21 Procedure and treatment not carried out due to patient leaving prior to being seen by health care provider

== ENCOUNTER 2025-07-16 22:04 | Emergency (ER) | payer MEDICAID ==
[~2025-07-16] VITALS: Ht 162.6 cm; Wt 186.0 kg
[~2025-07-16 22:04] MED LIST changes: +INSU100I28 SQ; -SEROQUEL
[2025-07-16 22:13] VITALS: O2SAT 100
[2025-07-16] MEDS: SODIUM CHLORIDE 0.9% 1,000 ML IV ONE (22:45)
[2025-07-16 23:41] LABS: BASOPHILS % 0.4 % (0.0-2.0); EOSINOPHILS % 3.1 % (0.0-5.0); HEMATOCRIT. 36.0 % (36.0-48.0); HEMOGLOBIN. 11.2 g/dL (12.0-16.0); LYMPHOCYTES % 29.2 % (20.0-50.0); MEAN PLATELET VOLUME 9.0 fl (7.4-10.4); MONOCYTES % 5.3 % (2.0-8.0); NEUTROPHILS % 62.0 % (40.0-76.0); PLATELET 330 x1000/uL (130-400); RED BLOOD CELL COUNT 4.96 mill/uL (4.2-5.4); RED CELL DISTRIBUTION WIDTH 16.1 % (11.6-14.6)
[2025-07-16 23:47] LABS: INR 1.0
[2025-07-16 23:49] LABS: CREATININE 1.2 mg/dL (0.6-1.0)
[2025-07-16 23:50] LABS: UREA NITROGEN BLOOD 11 mg/dL (9-23)
[2025-07-16 23:51] LABS: ASPARTATE AMINOTRANSFERASE 10 IU/L (<34)
[2025-07-16 23:52] LABS: BILIRUBIN DIRECT 0.1 mg/dL (<=3.0); BILIRUBIN TOTAL 0.5 mg/dL (0.1-1.0); PHOSPHORUS 2.8 mg/dL (2.5-4.9); PROTEIN TOTAL 7.4 g/dL (6.0-8.3)
[2025-07-17 00:15] LABS: HCG SCREEN NEGATIVE
[2025-07-17 00:17] VITALS: TEMP 37.1
[2025-07-17] MEDS: MORPHINE SULFATE 4 MG/ML INJ (FOR IV/IM USE) IV ONE (00:18)
[2025-07-17] MEDS: DIPHENHYDRAMINE 50MG/ML VIAL IV NR (01:07)
[2025-07-17] MEDS: INSULIN REGULAR (HUMULIN R) 1000UNITS/10ML VIAL SUBCUT NR (01:08)
[2025-07-17] MEDS: DIPHENHYDRAMINE 25MG CAPSULE PO ONE (02:20)
[2025-07-17] MEDS ORDERED: MORPHINE SULFATE 2 MG/ML INJ (NOT FOR IM USE) IV ONE (03:00)
[2025-07-17 03:05] VITALS: O2SAT 100
[2025-07-17 03:11] VITALS: BP 160/82; PULSE 99; RESP 20
[2025-07-17] MEDS: MORPHINE SULFATE 4 MG/ML INJ (FOR IV/IM USE) IM ONE (03:11)
== END 2025-07-17 03:36 | disposition home or self-care (01) ==
LOC: ER 22:04
DX: E11.65 Type 2 diabetes mellitus with hyperglycemia (principal); I10 Essential (primary) hypertension; E66.9 Obesity, unspecified; Z79.899 Other long term (current) drug therapy; Z98.890 Other specified postprocedural states; Z88.0 Allergy status to penicillin; Z88.1 Allergy status to other antibiotic agents; Z88.2 Allergy status to sulfonamides; Z88.5 Allergy status to narcotic agent
CPT/HCPCS: 80076; 80048; 84703; 83735; 84100; 85025; 85610; 85730; 86850; 86900; 86901; 36415; 96361; 99285; 82962; 76856; 96372; 96374; 96375; J7030; Q0163; J1200; J1815; J2270; Z7610

== ENCOUNTER 2025-09-12 14:01 | Emergency (ER) | payer MEDICAID, OTHER ==
[~2025-09-12] VITALS: Ht 172.7 cm; Wt 127.0 kg
[2025-09-12 14:06] VITALS: O2SAT 98
[2025-09-12] MEDS: DIPHENHYDRAMINE 50MG CAPSULE PO ONE (15:48)
[2025-09-12] MEDS: SODIUM CHLORIDE 0.9% 1,000 ML IV ONE (15:48)
[2025-09-12 16:15] LABS: BASOPHILS % 0.7 % (0.0-2.0); EOSINOPHILS % 1.3 % (0.0-5.0); HEMATOCRIT. 35.7 % (36.0-48.0); HEMOGLOBIN. 10.8 g/dL (12.0-16.0); LYMPHOCYTES % 22.5 % (20.0-50.0); MEAN PLATELET VOLUME 8.9 fl (7.4-10.4); MONOCYTES % 4.6 % (2.0-8.0); NEUTROPHILS % 70.9 % (40.0-76.0); PLATELET 340 x1000/uL (130-400); RED BLOOD CELL COUNT 5.17 mill/uL (4.2-5.4); RED CELL DISTRIBUTION WIDTH 17.1 % (11.6-14.6)
[2025-09-12 16:16] LABS: ADD RBC MORPHOLOGY YES
[2025-09-12 16:33] VITALS: BP 129/93; PULSE 96; RESP 17; TEMP 36.8; O2SAT 99
[2025-09-12 16:33] LABS: HCG SCREEN NEGATIVE
[2025-09-12 16:34] LABS: CREATININE 0.9 mg/dL (0.6-1.0); UREA NITROGEN BLOOD 6 mg/dL (9-23)
[2025-09-12 16:36] LABS: ASPARTATE AMINOTRANSFERASE 15 IU/L (<34); BILIRUBIN DIRECT 0.2 mg/dL (<=3.0)
[2025-09-12 16:37] LABS: BILIRUBIN TOTAL 0.7 mg/dL (0.1-1.0); PROTEIN TOTAL 7.1 g/dL (6.0-8.3)
[2025-09-12 18:19] LABS: PLATELET ESTIMATE NORMAL
== END 2025-09-12 17:04 | disposition left against medical advice (07) ==
LOC: ER 14:09
DX: R10.9 Unspecified abdominal pain (principal)
CPT/HCPCS: 80076; 80048; 84703; 83690; 85025; 36415; 99283; Q0163; J7030; Z7610